=== PATIENT | male | born 1930 | race Two or more races ===

== ENCOUNTER 2016-12-06 01:24 | Emergency (ER) | payer MEDICARE ==
[~2016-12-06] VITALS: Ht 167.6 cm; Wt 70.8 kg
[2016-12-06] MEDS ORDERED: CENTRUM SILVER1 EAC4 PO (01:35)
[2016-12-06] MEDS ORDERED: ASPIR-LOW81 MG ORAL (01:35)
[2016-12-06] MEDS ORDERED: ALLOPURINOL100 M1 ORAL (01:39)
[2016-12-06] MEDS ORDERED: LISINOPRIL5 MG ORAL (01:39)
[2016-12-06] MEDS ORDERED: FOSAMAX70 MG ORAL (01:39)
[2016-12-06] MEDS ORDERED: PROSCAR5 MG ORAL (01:39)
[2016-12-06] MEDS ORDERED: LOVASTATIN20 MG ORAL (01:39)
[2016-12-06] MEDS ORDERED: DULERA 100 MCG/13 GM INH (01:39)
[2016-12-06] MEDS ORDERED: SPIRIVA18 MCG INH (01:39)
[2016-12-06] MEDS ORDERED: TERAZOSIN HCL1 MG ORAL (01:39)
[2016-12-06] MEDS ORDERED: AMLODIPINE BESYL5 MG ORAL (01:39)
[2016-12-06] MEDS: Ipratropium 0.02% Inh Soln 2.5ml UD HHN SCH ×3 (01:41→02:15)
[2016-12-06] MEDS: Albuterol ud Inhalation HHN SCH ×3 (01:41→02:15)
[2016-12-06] MEDS ORDERED: Solu-MEDROL 125mg Inj IVP ONE (01:45)
[2016-12-06] MEDS: Levalbuterol Inh UD 1.25mg/0.5ml HHN PRN ×2 (01:52→03:08)
[2016-12-06 02:27] LABS: BASOPHILS % (AUTO) 1.7 % (0.0-2.0); EOSINOPHILS % (AUTO) 0.7 % (0.0-3.0); LYMPHOCYTES % (AUTO) 18.9 % (20.0-45.0); MEAN CORPUSCULAR HEMOGLOBIN 30.4 PG (27.0-31.0); MEAN CORPUSCULAR HGB CONC 31.5 G/DL (32.0-36.0); MEAN CORPUSCULAR VOLUME 97 FL (80-99); MEAN PLATELET VOLUME 7.9 FL (6.5-10.1); MONOCYTES % (AUTO) 10.4 % (1.0-10.0); NEUTROPHILS % (AUTO) 68.3 % (45.0-75.0); PLATELET COUNT 161 K/UL (150-450); RED BLOOD COUNT 4.64 M/UL (4.70-6.10); RED CELL DISTRIBUTION WIDTH 12.8 % (11.6-14.8); WHITE BLOOD COUNT 13.7 K/UL (4.8-10.8)
[2016-12-06 02:28] LABS: APPEARANCE,URINE CLEAR; KETONES,URINE NEGATIVE (NEGATIVE); LEUKOCYTE ESTERASE ,URINE NEGATIVE (NEGATIVE); NITRITE,URINE NEGATIVE (NEGATIVE); PH,URINE 6 (4.5-8.0); PROTEIN,URINE 3+ (NEGATIVE); UROBILINOGEN,URINE NORMAL MG/DL (0.0-1.0)
[2016-12-06 02:38] LABS: ALANINE AMINOTRANSFERASE 13 U/L (3-41); ALBUMIN/GLOBULIN RATIO 1.3 (1.0-2.7); ANION GAP 17 (5-15); ASPARTATE AMINO TRANSFERASE 25 U/L (5-40); CALCIUM 8.8 mg/dL (8.6-10.2); CARBON DIOXIDE 26 mEQ/L (20-30); CHLORIDE 97 mEQ/L (98-107); CREATININE 1.3 mg/dL (0.7-1.2); HEMOLYSIS 14; SODIUM 140 mEQ/L (135-145); TOTAL PROTEIN 7.6 g/dL (6.6-8.7); TROPONIN I < 0.30 ng/mL (<=0.30)
[2016-12-06 02:41] LABS: REFLEX LACTIC ACID YES OR NO YES
[2016-12-06 02:44] LABS: SQUAMOUS EPITHELIAL CELL,UR FEW /LPF (NONE/OCC); WBC,URINE 0 /HPF (0 - 0)
[2016-12-06 02:48] VITALS: BP 151/64
[2016-12-06 02:49] LABS: CKMB 4.8 ng/mL (< 6.7)
[2016-12-06] MEDS ORDERED: Cefepime HCl 1 GM in NS 55 ML IV ONE (03:00)
[2016-12-06] MEDS ORDERED: Azithromycin 500 MG in NS 275 ML IV ONE (03:00)
[2016-12-06] MEDS ORDERED: Cefepime 1gm vial ONE (03:43)
[2016-12-06] MEDS ORDERED: NS 110 ML ONE (03:43)
[2016-12-06] MEDS ORDERED: Tubing IV Cassette IV ONE ×2 (03:43→04:38)
[2016-12-06] MEDS ORDERED: Azithromycin Inj IV ONE (04:37)
[2016-12-06] MEDS ORDERED: NS 275 ML ONE (04:38)
[2016-12-06 04:45] VITALS: BP 121/57
[2016-12-06] MEDS ORDERED: Ipratropium 0.02% Inh Soln 2.5ml UD HHN ONE ×2 (05:15→07:45)
[2016-12-06] MEDS ORDERED: Levalbuterol Inh UD 1.25mg/0.5ml HHN ONE ×2 (05:15→07:45)
[2016-12-06 06:25] VITALS: BP 150/56
--- NOTE | 2016-12-06 07:10 | Emergency Room Report ---
History of Present Illness General Chief Complaint: Dyspnea/Respdistress Source: Patient, EMS Present Illness HPI 86-year-old male presents ED complaining of shortness of breath. Patient states symptoms started last night and he called 911. Patient has history of COPD. Per EMS patient was desaturating and was started on breathing treatments. Upon arrival O2 saturation was improved however patient remained short of breath. Denies any fevers or chills. Denies cough. No other aggravating or relieving factors. Denies any other associated symptoms Allergies: Coded Allergies: No Known Allergies (Unverified , 12/06/16) Patient History Past Medical History: COPD Past Surgical History: none Pertinent Family History: none Social History: Denies: alcohol use, drug use, smoking Immunizations: UTD Reviewed Nursing Documentation: PMH: Agreed, PSxH: Agreed Review of Systems All Other Systems: negative except mentioned in HPI Physical Exam Vital Signs Date Time Temp Pulse Resp B/P Pulse Ox O2 Delivery O2 Flow Rate FiO2 12/06/16 01:15 97.9 115 22 152/65 100 Simple Mask 12/06/16 01:23 10.0 12/06/16 01:52 100 Sp02 EP Interpretation: reviewed, normal General Appearance: alert, GCS 15, non-toxic, mild distress Head: normocephalic Eyes: bilateral eye PERRL, bilateral eye normal inspection ENT: normal ENT inspection Neck: normal inspection Respiratory: chest non-tender, crackles, speaking full sentences, wheezing Cardiovascular #1: tachycardia Gastrointestinal: normal inspection Rectal: deferred Genitourinary: no CVA tenderness Musculoskeletal: normal inspection Neurologic: alert, oriented x3, responsive, motor strength/tone normal, sensory intact, speech normal Psychiatric: normal inspection Skin: normal inspection Lymphatic: normal inspection Medical Decision Making Diagnostic Impression: Primary Impression: COPD exacerbation Additional Impression: Pneumonia Qualified Codes: J18.9 - Pneumonia, unspecified organism ER Course Hospital Course 86-year-old M presenting to ED with SOB. h/o COPD Differential diagnoses include: Pneumonia, CHF exacerbation, pneumothorax, fluid overload Clinical course Patient placed on stretcher. On financial rep with stable vitals. After initial history and physical, I ordered nebulizer treatments. I ordered labs, IV fluids, EKG, chest x-ray, blood cultures, UA. Labs - noted leukocytosis, hemoglobin/hematocrit stable, electrolytes okay, lactate 2, troponins negative CXR - hyperinflated lungs. R lower lung infiltrates Patient states he does not feel better and wishes to be admitted. abx given. mag given. Because of insurance patient will be transferred to [facility] I feel this is a highly complex case requiring extensive working including EKG/ Rhythm strip, Xray/CT/US, Blood/urine lab work, repeat exams while in ED, and administration of strong opiates/narcotics for pain control, admission to hospital or close patient follow up. Diagnosis - COPD exacerbation, pneumonia Transferred in serious condition Labs Test 12/06/16 02:00 White Blood Count 13.7 K/UL (4.8-10.8) Red Blood Count 4.64 M/UL (4.70-6.10) Hemoglobin 14.1 G/DL (14.2-18.0) Hematocrit 44.7 % (42.0-52.0) Mean Corpuscular Volume 97 FL (80-99) Mean Corpuscular Hemoglobin 30.4 PG (27.0-31.0) Mean Corpuscular Hemoglobin Concent 31.5 G/DL (32.0-36.0) Red Cell Distribution Width 12.8 % (11.6-14.8) Platelet Count 161 K/UL (150-450) Mean Platelet Volume 7.9 FL (6.5-10.1) Neutrophils (%) (Auto) 68.3 % (45.0-75.0) Lymphocytes (%) (Auto) 18.9 % (20.0-45.0) Monocytes (%) (Auto) 10.4 % (1.0-10.0) Eosinophils (%) (Auto) 0.7 % (0.0-3.0) Basophils (%) (Auto) 1.7 % (0.0-2.0) Urine Color Yellow Urine Appearance Clear Urine pH 6 (4.5-8.0) Urine Specific [place] 1.015 (1.005-1.035) Urine Protein 3+ (NEGATIVE) Urine Glucose (UA) Negative (NEGATIVE) Urine Ketones Negative (NEGATIVE) Urine Occult Blood 3+ (NEGATIVE) Urine Nitrite Negative (NEGATIVE) Urine Bilirubin Negative (NEGATIVE) Urine Urobilinogen Normal MG/DL (0.0-1.0) Urine Leukocyte Esterase Negative (NEGATIVE) Urine RBC 2-4 /HPF (0 - 0) Urine WBC 0 /HPF (0 - 0) Urine Squamous Epithelial Cells Few /LPF (NONE/OCC) Urine Bacteria None /HPF (NONE) Sodium Level 140 mEQ/L (135-145) Potassium Level 4.0 mEQ/L (3.4-4.9) Chloride Level 97 mEQ/L (98-107) Carbon Dioxide Level 26 mEQ/L (20-30) Anion Gap 17 (5-15) Blood Urea Nitrogen 14 mg/dL (7-23) Creatinine 1.3 mg/dL (0.7-1.2) Estimat Glomerular Filtration Rate mL/min (>60) Glucose Level 203 mg/dL (74-106) Lactic Acid Level 2.00 mmol/L (0.66-2.22) Calcium Level 8.8 mg/dL (8.6-10.2) Total Bilirubin 0.3 mg/dL (0.0-1.2) Aspartate Amino Transf (AST/SGOT) 25 U/L (5-40) Alanine Aminotransferase (ALT/SGPT) 13 U/L (3-41) Alkaline Phosphatase 70 U/L (40-129) Total Creatine Kinase 303 U/L (38-174) Creatine Kinase MB 4.8 ng/mL (< 6.7) Creatine Kinase MB Relative Index 1.5 Troponin I < 0.30 ng/mL (<=0.30) Pro-B-Type Natriuretic Peptide 120 pg/mL (0-450) Total Protein 7.6 g/dL (6.6-8.7) Albumin 4.4 g/dL (3.5-5.2) Globulin 3.2 g/dL Albumin/Globulin Ratio 1.3 (1.0-2.7) EKG Diagnostic Results Rate: tachycardiac Rhythm: NSR ST Segments: no acute changes ASA given to the pt in ED: No Rhythm Strip Diag. Results EP Interpretation: yes Rhythm: NSR, no PVC's, no ectopy Chest X-Ray Diagnostic Results EP Interpretation: Yes Findings: no effusion, no pneumothorax, no acute cardiopulmonary disease, other - hyperinflated lungs. R sided infiltrate Number of Views: 1 Last Vital Signs Date Time Temp Pulse Resp B/P Pulse Ox O2 Delivery O2 Flow Rate FiO2 12/06/16 06:25 115 23 150/56 96 Nasal Cannula 2.0 12/06/16 05:25 28 12/06/16 01:15 97.9 Status: improved Disposition: XFER SHT-TRM HOSP Condition: Serious Referrals: [facility] (PCP) RODDY GABRIEL M.D. Dec 06, 2016 07:10
[2016-12-06 07:30] VITALS: BP 147/64
[2016-12-06 08:54] VITALS: BP 142/73
--- NOTE | 2016-12-06 11:46 | Diagnostic Imaging Report ---
Indication: SOB Technique: One view of the chest Comparison: none Findings: Reticular opacities are seen in the right perihilar and infrahilar region, suspect chronic. No definite acute infiltrates. No effusions. Normal heart size. 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 Correlate with clinical findings No acute process otherwise
--- NOTE | 2016-12-08 11:50 | Cardiology Report ---
APPROVED REPORT EKG Measurement Heart [id number] Sinus tachycardia Left axis deviation Low voltage QRS Inferior infarct, age undetermined Cannot rule out Anterior infarct, age undetermined Abnormal ECG
== END 2016-12-06 09:18 | disposition short-term general hospital (02) ==
LOC: EDBD 01:24 → EMR 02:00
DX: J44.1 Chronic obstructive pulmonary disease with (acute) exacerbation (principal); J18.9 Pneumonia, unspecified organism
CPT/HCPCS: 36415; 71010; 80053; 81003; 82550; 82553; 82962; 83605; 83880; 84484; 85025; 87040; 93005; 94640; 94664; 96360; 96361; 96374; 99285; J0456; J0692; J2930; J7040; J7050; J7644